=== PATIENT | male | born 1940 | race Caucasian/White ===

== ENCOUNTER 2016-12-12 12:27 | Emergency (ER) | payer OTHER ==
[2016-12-12 12:36] VITALS: TEMP 98.1; BMI 34.1
--- NOTE | 2016-12-12 14:03 | PDOC ---
Attending Attestation - Resident Resident Name: Odin Leyva - ED Attending Attestation I have performed the following: I have examined & evaluated the patient, The case was reviewed & discussed with the resident, I agree w/resident's findings & plan, Exceptions are as noted - HPI HPI: 76 yo M history MARAH, prostate CA, HTN, HL p/w intermittent SOB for past 4 months. He states that he is supposed to use CPAP at night, did not use it last night. Denies cough, fever, chills, cp, cough. No recent illness. No change in exercise tolerance. - Physicial Exam PE: GENERAL: Awake, alert, and fully oriented, in no acute distress HEAD: No signs of trauma EYES: PERRLA, EOMI, sclera anicteric, conjunctiva clear ENT: Auricles normal inspection, hearing grossly normal, nares patent, oropharynx clear without exudates. Moist mucosa NECK: Normal ROM, supple, no lymphadenopathy, JVD, or masses LUNGS: Breath sounds equal, clear to auscultation bilaterally. No wheezes, and no crackles HEART: Regular rate and rhythm, normal S1 and S2, no murmurs, rubs or gallops ABDOMEN: Soft, nontender, normoactive bowel sounds. No guarding, no rebound. No masses EXTREMITIES: Normal range of motion, no edema. No clubbing or cyanosis. No cords, erythema, or tenderness NEUROLOGICAL: Cranial nerves II through XII grossly intact. Normal speech, normal gait SKIN: Warm, Dry, normal turgor, no rashes or lesions noted. - Medical Decision Making 76 yo M with MARAH, prostate CA, HL, HTN presents with SOB this morning, now resolved. Symptoms started after not using his CPAP last night. Will obtain labs including CE and BNP, obtain CXR, and EKG. If all wnl, will likely DC home.
--- NOTE | 2016-12-12 14:16 | PDOC ---
History of Present Illness - General Chief Complaint: Shortness of Breath Stated Complaint: SOB, PCP SENT Time Seen by Provider: 12/12/16 13:12 History Source: Patient, Family Exam Limitations: No Limitations - History of Present Illness Initial Comments: 76 yo M with h/o HTN, HLD, prostate CA, MARAH on CPAP at night presented to the ED with shortness of breath this morning. He stated that he's been feeling tired , lack of energy, under a lot of stress in the last 4 months. He usually doesn' t sleep well due to urinary problem and MARAH. This morning he felt short of breath and called his PMD. He was then sent to the ED by PMD. Denies fever, chills, chest pain, abd pain, dizziness, n/v. Past History - Past Medical History Allergies/Adverse Reactions: Allergies Allergy/AdvReac Type Severity Reaction Status Date / Time No Known Allergies Allergy Verified 05/17/16 16:30 Home Medications: Ambulatory Orders Amlodipine Besylate [Norvasc -] 5 mg PO BID 09/30/14 Atorvastatin Ca [Lipitor] 20 mg PO HS 09/30/14 Cyclosporine [Restasis] 1 each OU BID 09/30/14 Gabapentin 200 mg PO BID 09/30/14 Ranitidine [Zantac -] 150 mg PO DAILY 09/30/14 Brimonidine Tartrate/Timolol [Combigan 0.2%-0.5% Eye Drops] 5 ml OU BID Cetirizine HCl [Zyrtec -] 10 mg PO DAILY 05/17/16 Escitalopram Oxalate [Lexapro -] 5 mg PO DAILY 05/17/16 Ipratropium [place] 15 ml NS BID 05/17/16 Latanoprost 0.005% Eye Drops [Xalatan 0.005% Eye Drops -] 1 drop OU BID Lorazepam 0.5 mg PO DAILY PRN 05/17/16 Triamcinolone Acetonide [Nasacort] 10.8 ml NS BID 05/17/16 Bacitracin Ophthalmic Oint - 1 applic OD TID #0 tube 05/23/16 Aspirin [ASA -] 81 mg PO DAILY 12/12/16 Meloxicam 7.5 mg PO DAILY 12/12/16 Ranitidine [Zantac -] 150 mg PO HS 12/12/16 Triamcinolone Acetonide [Nasacort] 10.8 ml NS BID 12/12/16 Anemia: No Asthma: No Cancer: Yes (H/O PROSTATE WITH RADIATION) Cardiac Disorders: No CVA: No COPD: No CHF: No Dementia: No Diabetes: No GI Disorders: Yes (ACID REFLUX, COLON POLYPS, DIVERTICULOSIS) Disorders: Yes (DESTRUCTED BLADDER TISSUE FROM RADIATION-MILD URINARY LEAKAGE.) HTN: Yes Hypercholesterolemia: Yes Liver Disease: No Seizures: No Thyroid Disease: No - Surgical History Abdominal Surgery: No Appendectomy: No Cardiac Surgery: No Cholecystectomy: Yes Lung Surgery: No Neurologic Surgery: No Orthopedic Surgery: Yes (DORA KNEE REPLACEMENTS 2005, 08/2014 RIGHT KNEE REVISION.) - Psycho/Social/Smoking Cessation Hx Anxiety: No Suicidal Ideation: No Smoking Status: No Smoking History: Former smoker Have you smoked in the past 12 months: No Number of Cigarettes Smoked Daily: 0 If you are a former smoker, when did you quit?: 1994 Information on smoking cessation initiated: No Hx Alcohol Use: Yes (FEW GLASSES PER WEEK) Drug/Substance Use Hx: No Substance Use Type: Alcohol Hx Substance Use Treatment: No Review of Systems - Review of Systems Able to Perform ROS?: Yes Is the patient limited Yemeni proficient: No Constitutional: Yes: Malaise, Weakness. No: Chills, Fever Respiratory: Yes: SOB with Exertion. No: Cough, Shortness of Breath, SOB at Rest Cardiac (ROS): No: Chest Pain ABD/GI: No: Nausea, Vomiting : Yes: Frequency *Physical Exam - Vital Signs Last Vital Signs Temp Pulse Resp BP Pulse Ox 98.1 F 73 18 135/81 96 12/12/16 12:32 12/12/16 12:32 12/12/16 12:32 12/12/16 12:32 12/12/16 12:32 - Physical Exam General Appearance: No: Apparent Distress Neck: positive: Trachea midline, Supple Respiratory/Chest: positive: Lungs Clear, Normal Breath Sounds Cardiovascular: positive: Regular Rhythm, Regular Rate, S1, S2. negative: Murmur Gastrointestinal/Abdominal: positive: Normal Bowel Sounds. negative: Distended , Tenderness Extremity: positive: Swelling Integumentary: positive: Rash (face) Neurologic: positive: Fully Oriented, Alert ED Treatment Course - LABORATORY CBC & Chemistry Diagram: 12/12/16 14:34 12/12/16 14:34 *DC/Admit/Observation/Transfer Diagnosis at time of Disposition: Sleep apnea with use of continuous positive airway pressure (CPAP) Fatigue Qualifiers: Fatigue type: chronic, unspecified Qualified Code(s): R53.82 - Chronic fatigue , unspecified - Discharge Dispostion Disposition: HOME Condition at time of disposition: Stable Admit: No - Referrals Referrals: Jakub Jose MD [Primary Care Provider] - Kirby Mckenzie MD [Staff Physician] - Natan Corley MD [Staff Physician] - - Patient Instructions Additional Instructions: You were seen in the ER due to chronic fatigue and shortness of breath. This could be related to your underlying sleep apnea and poor sleep hygiene. Please follow up with Dr. Yadav and your primary doctor for sleep study and blood sugar management. If you experience acute exertional shortness of breath, please come back in the ER for further evaluation.
[2016-12-12 14:50] LABS: BASOPHIL 0.8 % (0-2.0); EOSINOPHIL 4.8 % (0-4.5); MCH 30.7 pg (25.7-33.7); MEAN CELL VOLUME 93.2 fl (80-96); MEAN PLT VOLUME 7.9 fl (7.5-11.1); NEUTROPHILS 57.9 % (42.8-82.8); PLATELET COUNT 194 K/MM3 (134-434); RDW 13.9 % (11.9-15.9); WHITE BLOOD COUNT 4.5 K/mm3 (4.0-10.0)
[2016-12-12 15:16] LABS: ANION GAP 14 (8-16); BILIRUBIN,TOTAL 0.4 mg/dL (0.2-1.0); CALCIUM 9.2 mg/dL (8.5-10.1); CO2 29 mmol/L (21-32); COCKROFT - GAULT 96.13; CREATININE 0.9 mg/dL (0.7-1.3); GLUCOSE,RANDOM 90 mg/dL (74-106); SGOT/AST 26 U/L (15-37); SGPT/ALT 44 U/L (12-78); TOT PROT 7.2 g/dl (6.4-8.2)
[2016-12-12 15:18] LABS: ALK PHOS 92 U/L (45-117); TROPONIN I < 0.02 ng/ml (0.00-0.05)
[2016-12-12 16:10] VITALS: BP 161/94; PULSE 72
--- NOTE | 2016-12-13 08:15 | EKG ---
Test Reason : Blood Pressure : / mmHG Vent. Rate : 066 BPM Atrial Rate : 066 BPM P-R Int : 186 ms QRS Dur : 088 ms QT Int : 436 ms P-R-T Axes : 047 -07 021 degrees QTc Int : 457 ms NORMAL SINUS RHYTHM MINIMAL VOLTAGE CRITERIA FOR LVH, MAY BE NORMAL VARIANT BORDERLINE ECG WHEN COMPARED WITH ECG OF 15-AUG-2015 08:54, NO SIGNIFICANT CHANGE WAS FOUND Confirmed by TANIKA LOPEZ MD ([id number]) on 12/13/2016 8:15:13 AM Referred By: Confirmed By:TANIKA LOPEZ MD
== END 2016-12-12 16:10 | disposition home or self-care (01) ==
LOC: JER 12:27
DX: G47.33 Obstructive sleep apnea (adult) (pediatric) (principal); F51.8 Other sleep disorders not due to a substance or known physiological condition; I10 Essential (primary) hypertension; E78.00 Pure hypercholesterolemia, unspecified; Z85.46 Personal history of malignant neoplasm of prostate
CPT/HCPCS: 36415; 71010-TC; 80053; 82550; 83036; 83880; 84484; 85025; 93005; 93010; 99283-25

== ENCOUNTER 2017-12-02 14:37 | Emergency (ER) | payer OTHER ==
[2017-12-02 14:53] VITALS: TEMP 97.8; BMI 34.1
[2017-12-02] MEDS ORDERED: LIDOCAINE 1%/EPI 1:100000 (20 ML MULTI DOSE VIAL) ONE (15:09)
--- NOTE | 2017-12-02 15:55 | PDOC ---
History of Present Illness - General History Source: Patient, Spouse Exam Limitations: No Limitations - History of Present Illness Initial Comments: 12/02/17 15:55 The patient is a 77 year old male, with a significant past medical history of HTN, HLD and prostate CA, who presents to the emergency department s/p mechanical fall with, a laceration to the nose. As per patient, he was walking down the concrete steps outside his house when he tripped and fell on his face. He reports hitting his face on the sharp edge of the steps. The patient reports trying to put gauze pads to control the bleeding which he bled through. He denies any recent fevers, chills, headache or dizziness. He denies any recent nausea, vomit, diarrhea or constipation. He denies any recent chest pain or shortness of breath. He denies any recent dysuria, frequency, urgency or hematuria. Allergies: NKA Past surgical history: Radical prostatectomy, cholecystectomy, knee surgeries ( x3) Social History: Social drinking. Nonsmoker. Denies recreational drug use. Primary Care Physician: Dr. Jakub Jose Telephone Clerks Supervisor: Dr. Scooter Bradshaw <Aki Ewing - Last Filed: 12/02/17 15:55> <Kitty Fabian - Last Filed: 12/02/17 16:10> <Kamila Quarles - Last Filed: 12/02/17 19:00> - General Chief Complaint: Injury Stated Complaint: FALL/INJURY Time Seen by Provider: 12/02/17 15:08 Past History <Aki Ewing - Last Filed: 12/02/17 15:55> - Past Medical History Anemia: No Asthma: No Cancer: Yes (H/O PROSTATE WITH RADIATION) Cardiac Disorders: No CVA: No COPD: No CHF: No Dementia: No Diabetes: No GI Disorders: Yes (ACID REFLUX, COLON POLYPS, DIVERTICULOSIS) Disorders: Yes (DESTRUCTED BLADDER TISSUE FROM RADIATION-MILD URINARY LEAKAGE.) HTN: Yes Hypercholesterolemia: Yes Liver Disease: No Seizures: No Thyroid Disease: No - Surgical History Abdominal Surgery: No Appendectomy: No Cardiac Surgery: No Cholecystectomy: Yes Lung Surgery: No Neurologic Surgery: No Orthopedic Surgery: Yes (DORA KNEE REPLACEMENTS 2005, 08/2014 RIGHT KNEE REVISION.) - Suicide/Smoking/Psychosocial Hx Smoking Status: No Smoking History: Never smoked Have you smoked in the past 12 months: No Number of Cigarettes Smoked Daily: 0 If you are a former smoker, when did you quit?: 1994 Information on smoking cessation initiated: No Hx Alcohol Use: Yes (FEW GLASSES PER WEEK) Drug/Substance Use Hx: No Substance Use Type: Alcohol Hx Substance Use Treatment: No <Kitty Fabian - Last Filed: 12/02/17 16:10> <Kamila Quarles - Last Filed: 12/02/17 19:00> - Past Medical History Allergies/Adverse Reactions: Allergies Allergy/AdvReac Type Severity Reaction Status Date / Time No Known Allergies Allergy Verified 05/17/16 16:30 Home Medications: Ambulatory Orders Amlodipine Besylate [Norvasc -] 5 mg PO BID 09/30/14 Atorvastatin Ca [Lipitor] 20 mg PO HS 09/30/14 Gabapentin 200 mg PO BID 09/30/14 Brimonidine Tartrate/Timolol [Combigan 0.2%-0.5% Eye Drops] 5 ml OU BID Escitalopram Oxalate [Lexapro -] 5 mg PO DAILY 05/17/16 Ipratropium [place] 15 ml NS BID 05/17/16 Latanoprost 0.005% Eye Drops [Xalatan 0.005% Eye Drops -] 1 drop OU BID Lorazepam 0.5 mg PO DAILY PRN 05/17/16 Aspirin [ASA -] 81 mg PO DAILY 12/12/16 Omeprazole 20 mg PO DAILY 12/02/17 Solifenacin Succinate [Vesicare -] 5 mg PO DAILY 12/02/17 Triamcinolone Acetonide [Nasacort] 10.8 ml NS DAILY 12/02/17 Zolpidem Tartrate [Ambien] 5 mg PO HS 12/02/17 Review of Systems - Review of Systems Able to Perform ROS?: Yes Comments:: 12/02/17 15:55 GENERAL/CONSTITUTIONAL: No fever or chills. No weakness. (+)HEAD, EYES, EARS, NOSE AND THROAT: Laceration to the nose with active bleeding. No change in vision. No ear pain or discharge. No sore throat. CARDIOVASCULAR: No chest pain or shortness of breath. RESPIRATORY: No cough, wheezing, or hemoptysis. GASTROINTESTINAL: No nausea, vomiting, diarrhea or constipation. GENITOURINARY: No dysuria, frequency, or change in urination. MUSCULOSKELETAL: No joint or muscle swelling or pain. No neck or back pain. SKIN: No rash NEUROLOGIC: No headache, vertigo, loss of consciousness, or change in strength/ sensation. ENDOCRINE: No increased thirst. No abnormal weight change. HEMATOLOGIC/LYMPHATIC: No anemia, easy bleeding, or history of blood clots. ALLERGIC/IMMUNOLOGIC: No hives or skin allergy. All Other Systems: Reviewed and Negative <Aki Ewing - Last Filed: 12/02/17 15:55> *Physical Exam - Vital Signs Last Vital Signs Temp Pulse Resp BP Pulse Ox 97.8 F 77 18 181/112 96 12/02/17 14:51 12/02/17 14:51 12/02/17 14:51 12/02/17 14:51 12/02/17 14:51 <Aki Ewing - Last Filed: 12/02/17 15:55> - Vital Signs Last Vital Signs Temp Pulse Resp BP Pulse Ox 97.8 F 77 18 181/112 96 12/02/17 14:51 12/02/17 14:51 12/02/17 14:51 12/02/17 14:51 12/02/17 14:51 <Kitty Fabian - Last Filed: 12/02/17 16:10> - Vital Signs Last Vital Signs Temp Pulse Resp BP Pulse Ox 97.8 F 77 18 181/112 96 12/02/17 14:51 12/02/17 14:51 12/02/17 14:51 12/02/17 14:51 12/02/17 14:51 <Kamila Quarles - Last Filed: 12/02/17 19:00> Procedures - Laceration/Wound Repair Left Lateral Frontal Wound Length: to 2.5 cm Wound Explored: clean, no foreign body present Wound's Depth, Shape: irregular, contused tissue Anesthesia: 1% Lidocaine w/ Epi Amount of Anesthetic (ccs): 3 Wound Debrided: minimal Wound Repaired With: Sutures Suture Size/Type: 5:0, nylon Number of Sutures: 5 (2 vertical mattress, 3 simple interrupted) Sterile Dressing Applied: Yes <Kitty Fabian - Last Filed: 12/02/17 16:10> ED Treatment Course - RADIOLOGY Radiology Studies Ordered: Category Date Time Status FACIAL BONES CT W/O CONTRAST [CT] Stat CT Scan 12/02/17 16:[address] WITHOUT CONTRAST [CT] Stat CT Scan 12/02/17 16:11 Taken - Medications Given in the ED: ED Medications Discontinued Medications Generic Name Dose Route Start Last Admin Trade Name Sabina PRN Reason Stop Dose Admin Acetaminophen 1,000 mg 12/02/17 18:01 12/02/17 18:42 Tylenol - PO 12/02/17 18:02 1,000 mg ONCE ONE Administration Diphtheria/Tetanus/Acell Pertussis 0.5 ml 12/02/17 16:16 12/02/17 16:21 Boostrix - IM 12/02/17 16:17 0.5 ml .ONCE ONE Administration <Kamila Quarles - Last Filed: 12/02/17 19:00> Medical Decision Making - Medical Decision Making 12/02/17 16:11 +Mod oozing of blood from forehead wound prior to suture placement. Wound was sutured, + hemostasis. Pt also with abrasion to nasal bridge and L cheek, both with small tissue avulsion and oozing of blood. Surgicel and sterile gauze dressing placed. <Kitty Fabian - Last Filed: 12/02/17 16:10> *DC/Admit/Observation/Transfer - Attestations Scribe Attestion: 12/02/17 15:56 Documentation prepared by Aki Ewing, acting as director of medical review for Kitty Fabian MD. <Aki Ewing - Last Filed: 12/02/17 15:55> <Kitty Fabian - Last Filed: 12/02/17 16:10> - Discharge Dispostion Admit: No <Kamila Quarles - Last Filed: 12/02/17 19:00> Diagnosis at time of Disposition: Fall - Discharge Dispostion Disposition: HOME Condition at time of disposition: Good - Patient Instructions Printed Discharge Instructions: How to Prevent Falls Additional Instructions: Return to the Emergency Department in 7 days for suture removal A referral has been provided to ENT for your nasal fracture. Please follow up in the next 3-5 days. Return to the Emergency Department for any new/worsening/concerning symptoms.
[2017-12-02] MEDS ORDERED: DIPHTH,PERTUSS(ACELL),TET 0.5 ML DISP.SYRIN IM ONE (16:16)
[2017-12-02] MEDS ORDERED: ACETAMINOPHEN 500 MG TABLET (FP) PO ONE (18:01)
[2017-12-02] MEDS ORDERED: ACETAMINOPHEN 325 MG TABLET (FP) ONE (18:33)
[2017-12-02 19:12] VITALS: BP 146/99; PULSE 73
== END 2017-12-02 19:13 | disposition home or self-care (01) ==
LOC: JER 14:37
PROC: 09QK3ZZ Repair Nasal Mucosa and Soft Tissue, Percutaneous Approach (ICD-10-PCS; principal; 2017-12-02)
PROC: 3E0234Z Introduction of Serum, Toxoid and Vaccine into Muscle, Percutaneous Approach (ICD-10-PCS; 2017-12-02)
DX: S01.21XA Laceration without foreign body of nose, initial encounter (principal); W10.8XXA Fall (on) (from) other stairs and steps, initial encounter; Y93.89 Activity, other specified; Y92.018 Other place in single-family (private) house as the place of occurrence of the external cause; Y99.8 Other external cause status; I10 Essential (primary) hypertension; E78.00 Pure hypercholesterolemia, unspecified; Z85.46 Personal history of malignant neoplasm of prostate; Z96.653 Presence of artificial knee joint, bilateral; Z87.19 Personal history of other diseases of the digestive system; Z79.82 Long term (current) use of aspirin; Z90.79 Acquired absence of other genital organ(s)
CPT/HCPCS: 12011; 70450-TC; 70486-TC; 90471; 90715; 99282-25

== ENCOUNTER 2019-05-03 11:22 | Emergency (ER) | payer OTHER ==
[2019-05-03 11:40] VITALS: BP 164/94; PULSE 69; TEMP 98.5; BMI 34.8
--- NOTE | 2019-05-03 12:28 | PDOC ---
Attending Attestation - Resident Resident Name: Alfie Minor - ED Attending Attestation I have performed the following: I have examined & evaluated the patient, The case was reviewed & discussed with the resident, I agree w/resident's findings & plan, Exceptions are as noted - HPI HPI: 05/03/19 12:16 78y M hx prostate ca, b/l knee replacements, presenst with atraumatic L leg pain x 2.5 weeks. pt notse pain is worse in the ankle and lateral aspect of calf. Pt had an xray as an outpatient with a possible fracture and was referred to PT, has an appt with ortho but hasnt seen them yet. pt denies any trauma, falls, numbness/tingling/weakness. no pain elswhere. he has been actively participating in PT, ahs beenaw lking/excercising and pain seems to be gettin ga bit worse. deneis any other symptmos including physical exam: general: well apeparing in no distress abd soft nontender ext: trace edema b/l, no calf tenderness, no focal bony ttp on LLE, normal passive ROM of knee, ankle without pain. mild pain on lateral knee/tib/fib on active ROM. PMD: Dr. Jose will obtain xray to r/o fx if neg, will treat supportively michelle reassess - Physicial Exam PE: 05/04/19 12:57 see above - Medical Decision Making 05/03/19 14:01 xray noted for medial tibial fractuer will put pt in a knee immobilizer and have him fu w/ ortho
--- NOTE | 2019-05-03 12:42 | PDOC ---
History of Present Illness - General Chief Complaint: Pain Stated Complaint: LEFT KNEE PAIN Time Seen by Provider: 05/03/19 11:36 History Source: Patient, Spouse Exam Limitations: No Limitations - History of Present Illness Initial Comments: 05/03/19 12:11 PMD: Rebeca HPI: 78yo man PSH bilateral knee replacements with R-sided revision presenting with "broken left knee" diagnosed via xray yesterday. 2.5week history of worsening LLE pain near knee, [place], and ankle. Reports pain with ambulation that is now "80% worse" than it was last week. Leads and active lifestyle, unsure what caused his pain initially but thinks it may have occurred while he was working in the garden. Since the pain started he has continued his daily exercise and has gone to PT twice. He does leg extensions, walks the dog, and works in the yard. Naproxen has provided some relief (last taken 9AM) however, Excedrin taken last night was more effective. Ice packs and elevation have helped. Received call from PMD yesterday saying he had a fracture on xray on . Told to present to the ED if pain worsened. KNDA Hx of prostate cancer, not active. Past History - Travel Traveled outside of the country in the last 30 days: No Close contact w/someone who was outside of country & ill: No - Past Medical History Allergies/Adverse Reactions: Allergies Allergy/AdvReac Type Severity Reaction Status Date / Time No Known Allergies Allergy Verified 05/03/19 11:27 Home Medications: Ambulatory Orders Amlodipine Besylate [Norvasc -] 5 mg PO BID 09/30/14 Atorvastatin Ca [Lipitor] 20 mg PO HS 09/30/14 Gabapentin 100 mg PO BID 09/30/14 Brimonidine Tartrate/Timolol [Combigan 0.2%-0.5% Eye Drops] 5 ml OU BID Escitalopram Oxalate [Lexapro -] 10 mg PO DAILY 05/17/16 Ipratropium [place] 15 ml NS BID 05/17/16 Latanoprost 0.005% Eye Drops [Xalatan 0.005% Eye Drops -] 1 drop OU BID Lorazepam 0.5 mg PO DAILY PRN 05/17/16 Aspirin [ASA -] 81 mg PO DAILY 12/12/16 Omeprazole 20 mg PO DAILY 12/02/17 Solifenacin Succinate [Vesicare -] 5 mg PO DAILY 12/02/17 Triamcinolone Acetonide [Nasacort] 10.8 ml NS DAILY 12/02/17 Zolpidem Tartrate [Ambien] 5 mg PO HS 12/02/17 Lifitegrast [Xiidra] 1 drop OU BID 05/03/19 Naproxen 500 mg PO BID 05/03/19 Anemia: No Asthma: No Cancer: Yes (H/O PROSTATE WITH RADIATION) Cardiac Disorders: No CVA: No COPD: No CHF: No Dementia: No Diabetes: No GI Disorders: Yes (ACID REFLUX, COLON POLYPS, DIVERTICULOSIS) Disorders: Yes (DESTRUCTED BLADDER TISSUE FROM RADIATION-MILD URINARY LEAKAGE.) HTN: Yes Hypercholesterolemia: Yes Liver Disease: No Seizures: No Thyroid Disease: No - Surgical History Abdominal Surgery: No Appendectomy: No Cardiac Surgery: No Cholecystectomy: Yes Lung Surgery: No Neurologic Surgery: No Orthopedic Surgery: Yes (DORA KNEE REPLACEMENTS 2005, 08/2014 RIGHT KNEE REVISION.) - Suicide/Smoking/Psychosocial Hx Smoking Status: No Smoking History: Never smoked Have you smoked in the past 12 months: No Number of Cigarettes Smoked Daily: 0 If you are a former smoker, when did you quit?: 1994 Information on smoking cessation initiated: No Hx Alcohol Use: No Drug/Substance Use Hx: No Substance Use Type: Alcohol Hx Substance Use Treatment: No Review of Systems - Review of Systems Able to Perform ROS?: Yes Is the patient limited Kinyarwanda proficient: Yes Constitutional: No: Chills, Diaphoresis, Fever, Weakness HEENTM: No: Eye Pain, Nose Pain, Throat Pain, Mouth Swelling Respiratory: No: Cough, Shortness of Breath, Wheezing Cardiac (ROS): No: Chest Pain, Irregular Heart Rate, Palpitations, Chest Tightness ABD/GI: No: Constipated, Diarrhea, Nausea, Rectal Bleeding, Vomiting, Tarry Stools : No: Burning, Dysuria, Discharge, Hematuria Musculoskeletal: Yes: Symptoms Reported, See HPI, Joint Pain, Muscle Pain. No: Back Pain, Muscle Weakness Integumentary: No: Bruising, Erythema, Flushing, Lesions Neurological: No: Headache, Numbness, Tingling, Weakness Psychiatric: No: Emotional Problems, Mood Swings Endocrine: No: Unexplained Weight Loss, Change in Weight Hematologic/Lymphatic: No: Anemia, Blood Clots, Easy Bleeding All Other Systems: Reviewed and Negative *Physical Exam - Vital Signs Last Vital Signs Temp Pulse Resp BP Pulse Ox 98.5 F 69 18 164/94 96 05/03/19 11:22 05/03/19 11:22 05/03/19 11:22 05/03/19 11:22 05/03/19 11:22 - Physical Exam Comments: 05/03/19 12:48 Vitals reviewed, AFVSS Gen: WDWN man, resting in bed, tape on left left near knee and ankle, no acute distress CV: RRR, nl s1/s2, no murmurs appreciated Pulm: CTABL, normal WOB, no wheezes / rales / rhonchi Abd: Obese, soft, nontedner, nondistended Skin: Warm, dry, no rashes, ecchymosis Ext: WWP, no clubbing / cyanosis / edema, LLE with tape by knee, normal ROM with pain at extreme flexion, negative Homans sign, nontender posterior knee Pulses: 2+ radial and DP Neuro: Normal sensation bilateral extremities, strength adequate, 4+ at a minimum, didn't attempt to over power 2/2 reported fracture on recent xray Medical Decision Making - Medical Decision Making 05/03/19 12:55 78yo man PSH bilateral knee replacements with R-sided revision presenting with "broken left knee" diagnosed via xray yesterday. Clinically not apparent where fracture would be. No clinical signs of DVT other than pain, LLE DVT study performed . No apparent infectious signs or symptoms. No signs of compartment syndrome - negative for all Ps. Plan for re-imaging and appropriate splinting as necessary to ensure stability before Orthopaedic surgery appointment (currently scheduled for Dr. Nguyen for ). Likely discharge. Of note, mechanism unclear if fractured - ?pathologic fracture source should be addressed on outpatient basis. -Xray L knee, Tib/Fib, Ankle -650 Tylenol PO for pain, will reassess 05/03/19 14:06 -Xray with proximal tibial fracture, medial prominence adjacent to hardware -Patient with ortho appointment for , will attempt to move up -Sent with Xray report and CD copy of films -Patient placed in knee immobilizer, pain well controlled at the current time -Plan to continue Naproxen and OTC pain relievers as needed -Instructed in elevation and 20 on - 20 off icing Dispo: Home *DC/Admit/Observation/Transfer Diagnosis at time of Disposition: Leg pain, left - Discharge Dispostion Disposition: HOME Condition at time of disposition: Stable Decision to Admit order: No - Referrals Referrals: Jakub Jose MD [Primary Care Provider] - - Patient Instructions Printed Discharge Instructions: DI for Shinbone Fracture, How to Use a Knee Immobilizer Additional Instructions: You were seen and evaluated in the [facility] Emergency Department. Thank you for coming in. You were evaluated for your knee pain / fracture. You were found to have a proximal tibial fracture and were placed in a knee immobilizer. Continue to take OTC pain medications per label instructions as needed for pain. Follow up with your orthopaedic surgeon at your scheduled appointment on or earlier if possible. Remember your xray CD and reports to take with you. Please return to the ED if you experience any new or concerning symptoms which include but are not limited to: severe pain resistant to medication, swelling, coldness of your leg, persistent numbness or tingling in the extremity as these may be signs of a dangerous complication. - Post Discharge Activity
[2019-05-03] MEDS ORDERED: ACETAMINOPHEN 325 MG TABLET (FP) PO ONE (12:45)
[2019-05-03] MEDS ORDERED: ACETAMINOPHEN 325 MG TABLET (FP) ONE (12:52)
== END 2019-05-03 14:25 | disposition home or self-care (01) ==
LOC: FER 11:22
DX: M79.605 Pain in left leg (principal); Z96.653 Presence of artificial knee joint, bilateral; Z85.46 Personal history of malignant neoplasm of prostate; Z92.3 Personal history of irradiation; K21.9 Gastro-esophageal reflux disease without esophagitis; I10 Essential (primary) hypertension; E78.00 Pure hypercholesterolemia, unspecified
CPT/HCPCS: 73562-TC-LT-FY; 73590-TC-LT-FY; 73610-TC-LT-FY; 99284-25

== ENCOUNTER 2019-09-05 09:38 | Emergency (ER) | payer OTHER ==
[2019-09-05 09:51] VITALS: PULSE 92; BMI 34.1
--- NOTE | 2019-09-05 10:09 | PDOC ---
History of Present Illness - History of Present Illness Initial Comments: 09/05/19 11:00 Pt is an 79y/o male with prostate cancer s/p prostatectomy, right knee replacement 05/2019, HTN, HLD, and glaucoma who presents with constipation. This has been present since knee surgery but has gotten worse over the last 3 weeks. He has taken Miralax, colace, metamusil, dulcolax, Linzess, and Fleet enemas with no relief. He has daily or every other day small bowel movements but still feels urge to defecate. He has external hemorrhoids and is concerned they will bleed if he strains. Last colonoscopy was 5 years ago and had diverticulosis and polyps. He reports fatigue, loss of appetite, mild abdominal fullness, and fever 100.4 yesterday. Of note, he also has chronic rico that was replaced 7 days ago and reported a traumatic placement which the urethra was damaged and had to be cauterized then. The rico was replaced and is no longer draining blood. He was placed on cefuroxime and started 4 days ago for a UTI. Pt reports left shoulder pain and limited ROM. He has received an x-ray previously and EKG that was normal last week. He has started physical therapy with small relief. <Makayla Scherer - Last Filed: 09/05/19 14:11> <Lynne Mercer - Last Filed: 09/05/19 15:20> - General Chief Complaint: Constipation Stated Complaint: Constipation Past History - Past Medical History Anemia: No Asthma: No Cancer: Yes (H/O PROSTATE WITH RADIATION) Cardiac Disorders: No CVA: No COPD: No CHF: No Dementia: No Diabetes: No GI Disorders: Yes (ACID REFLUX, COLON POLYPS, DIVERTICULOSIS) Disorders: Yes (DESTRUCTED BLADDER TISSUE FROM RADIATION-MILD URINARY LEAKAGE.) HTN: Yes Hypercholesterolemia: Yes Liver Disease: No Seizures: No Thyroid Disease: No - Surgical History Abdominal Surgery: No Appendectomy: No Cardiac Surgery: No Cholecystectomy: Yes Lung Surgery: No Neurologic Surgery: No Orthopedic Surgery: Yes (DORA KNEE REPLACEMENTS 2005, 08/2014 RIGHT KNEE REVISION.) - Immunization History Immunization Up to Date: Yes - Psycho Social/Smoking Cessation Hx Smoking Status: No Smoking History: Never smoked Have you smoked in the past 12 months: No Number of Cigarettes Smoked Daily: 0 If you are a former smoker, when did you quit?: 1994 Hx Alcohol Use: No Drug/Substance Use Hx: No Substance Use Type: Alcohol Hx Substance Use Treatment: No <UmaMakayla resendiz - Last Filed: 09/05/19 14:11> <Lynne Mercer - Last Filed: 09/05/19 15:20> - Past Medical History Allergies/Adverse Reactions: Allergies Allergy/AdvReac Type Severity Reaction Status Date / Time ciprofloxacin [From Cipro] Allergy Verified 09/05/19 09:47 Home Medications: Ambulatory Orders Amlodipine Besylate [Norvasc -] 5 mg PO BID 09/30/14 Atorvastatin Ca [Lipitor] 20 mg PO HS 09/30/14 Gabapentin 100 mg PO BID 09/30/14 Brimonidine Tartrate/Timolol [Combigan 0.2%-0.5% Eye Drops] 5 ml OU BID Escitalopram Oxalate [Lexapro -] 10 mg PO DAILY 05/17/16 Ipratropium [place] 15 ml NS BID 05/17/16 LORazepam [Lorazepam] 0.5 mg PO DAILY PRN 05/17/16 Latanoprost 0.005% Eye Drops [Xalatan 0.005% Eye Drops -] 1 drop OU BID Aspirin [ASA -] 81 mg PO DAILY 12/12/16 Omeprazole 20 mg PO DAILY 12/02/17 Solifenacin Succinate [Vesicare -] 5 mg PO DAILY 12/02/17 Triamcinolone Acetonide [Nasacort] 10.8 ml NS DAILY 12/02/17 Zolpidem Tartrate [Ambien] 5 mg PO HS 12/02/17 Lifitegrast [Xiidra] 1 drop OU BID 05/03/19 Naproxen 500 mg PO BID 05/03/19 Peg 3350/Na Sulf,Bicarb,Cl/KCl [Golytely Solution -] 4,000 ml PO ONCE #1 soln.recon 09/05/19 Sennosides/Docusate Sodium [Senokot-S Tablet] 2 each PO DAILY PRN #60 tablet Review of Systems - Review of Systems Constitutional: Yes: Fever, Malaise. No: Chills ABD/GI: Yes: Abdominal Distended. No: Diarrhea, Nausea, Vomiting : No: Burning, Hematuria <Makayla Scherer - Last Filed: 09/05/19 14:11> *Physical Exam - Vital Signs Last Vital Signs Temp Pulse Resp BP Pulse Ox 98.9 F 92 H 18 115/69 96 09/05/19 09:47 09/05/19 09:47 09/05/19 09:47 09/05/19 09:47 09/05/19 09:47 - Physical Exam General Appearance: Yes: Nourished, Appropriately Dressed. No: Apparent Distress HEENT: positive: EOMI, [place] Neck: positive: Trachea midline Respiratory/Chest: positive: Lungs Clear Cardiovascular: positive: Regular Rhythm, Regular Rate. negative: Murmur Gastrointestinal/Abdominal: positive: Normal Bowel Sounds, Tender (mild lower abdominal on deep palpation), Protuberent Male Genitalia: positive: other (rico catheter draining yellowish urine) Rectal Exam: positive: other (no masses noted, no stool felt in vault or seen on glove) Extremity: positive: Other (left shoulder decreased flexion and abduction) Neurologic: positive: automobile washer steam II-XII NML intact, Fully Oriented, Alert, Normal Mood/ Affect <Dale Scherera - Last Filed: 09/05/19 14:11> - Vital Signs Last Vital Signs Temp Pulse Resp BP Pulse Ox 98.6 F 92 H 15 123/78 96 09/05/19 10:08 09/05/19 10:08 09/05/19 10:08 09/05/19 10:08 09/05/19 10:08 <Lynne Mercer - Last Filed: 09/05/19 15:20> ED Treatment Course - LABORATORY CBC & Chemistry Diagram: 09/05/19 10:11 09/05/19 10:11 <Makayla Scherer - Last Filed: 09/05/19 14:11> - LABORATORY CBC & Chemistry Diagram: 09/05/19 10:11 09/05/19 10:11 - ADDITIONAL ORDERS Additional order review: Laboratory Results 09/05/19 09/05/19 09/05/19 11:37 10:11 10:11 Sodium 134 L Potassium 4.5 Chloride 99 Carbon Dioxide 28 Anion Gap 6 L BUN 22.1 H Creatinine 0.8 Est GFR (CKD-EPI)AfAm 97.78 Est GFR (CKD-EPI)NonAf 84.37 Random Glucose 131 H Lactic Acid 0.8 Calcium 8.7 Total Bilirubin 0.3 AST 43 H ALT 53 Alkaline Phosphatase 110 Total Protein 6.2 L Albumin 2.4 L Lipase 231 09/05/19 10:11 RBC 3.47 L MCV 88.3 MCHC 33.8 RDW 15.7 D MPV 7.3 L Neutrophils % 77.9 D Lymphocytes % 8.5 D Monocytes % 11.3 H Eosinophils % 1.3 Basophils % 1.0 <SylvieLynneindia Luque - Last Filed: 09/05/19 15:20> Medical Decision Making - Medical Decision Making 09/05/19 11:17 Pt is an 79y/o male with prostate cancer s/p prostatectomy and radiation, right knee replacement 05/2019, HTN, HLD, and glaucoma who presents with worsening constipation x3 weeks with no relief with prescription medications and enemas. Rectal exam did not indicate stool in rectal vault. CBC and CMP WNL. order: CT abdomen/pelvis with contrast differential: constipation, ileus 09/05/19 14:08 CT shows constipation. Will give prescription and discharge pt to f/u out pt. <Makayla Scherer - Last Filed: 09/05/19 14:11> Discharge - Discharge Information Problems reviewed: Yes <Makayla Scherer - Last Filed: 09/05/19 14:11> - Admission No <Lynne Mercer - Last Filed: 09/05/19 15:20> - Discharge Information Clinical Impression/Diagnosis: Constipation Qualifiers: Constipation type: unspecified constipation type Qualified Code(s): K59.00 - Constipation, unspecified Condition: Stable Disposition: HOME - Additional Discharge Information Prescriptions: Peg 3350/Na Sulf,Bicarb,Cl/KCl [Golytely Solution -] 4,000 ml PO ONCE #1 soln.recon Sennosides/Docusate Sodium [Senokot-S Tablet] 2 each PO DAILY PRN #60 tablet PRN Reason: Constipation - Follow up/Referral Referrals: Jakub Jose MD [Primary Care Provider] - Jonatan Holguin DO [Staff Physician] - - Patient Discharge Instructions Patient Printed Discharge Instructions: DI for Constipation Additional Instructions: You presented to the emergency room for constipation. A CAT scan showed no specific cause. You are being given 2 prescriptions to help with bowel movements. You are able to go home. Please follow up with Dr. Jose or Dr. Holguin in the next week. Return to the emergency room or call 911 if you do not improve.
[2019-09-05 10:30] LABS: EOS % 1.3 % (0-4.5); HEMATOCRIT 30.6 % (35.4-49); HEMOGLOBIN 10.4 GM/dL (11.7-16.9); LYMPH % 8.5 % (8-40); MCH 29.8 pg (25.7-33.7); MCHC 33.8 g/dl (32.0-35.9); MEAN CELL VOLUME 88.3 fl (80-96); MEAN PLT VOLUME 7.3 fl (7.5-11.1); MONO % 11.3 % (3.8-10.2); NEUT % 77.9 % (42.8-82.8); PLATELET COUNT 322 K/MM3 (134-434); RBC 3.47 M/mm3 (4.00-5.60); RDW 15.7 % (11.9-15.9); WHITE BLOOD COUNT 6.6 K/mm3 (4.0-10.0)
[2019-09-05 11:07] LABS: ALBUMIN 2.4 g/dl (3.4-5.0); BILIRUBIN,TOTAL 0.3 mg/dL (0.2-1); BLOOD UREA NITROGEN 22.1 mg/dL (7-18); CALCIUM 8.7 mg/dL (8.5-10.1); CREATININE 0.8 mg/dL (0.55-1.3); POTASSIUM 4.5 mmol/L (3.5-5.1); TOT PROT 6.2 g/dl (6.4-8.2)
--- NOTE | 2019-09-05 11:19 | PDOC ---
Attending Attestation - Resident Resident Name: Makayla Scherer - ED Attending Attestation I have performed the following: I have examined & evaluated the patient, The case was reviewed & discussed with the resident, I agree w/resident's findings & plan - HPI HPI: 09/05/19 11:19 79 year old male, with a significant past medical history of HTN, HLD and prostate CA presenting with constipation recent knee replacement several weeks ago. a/w fatigue, loss of appetite, mild abdominal fullness, and fever 100.4 yesterday. pt normally self catheterizes. Of note, he also has chronic rico that was replaced 7 days ago and reported a traumatic placement which the urethra was damaged and had to be cauterized then. The rico was replaced and is no longer draining blood. He was placed on cefuroxime and started 4 days ago for a UTI. He has taken Miralax, colace, metamusil, dulcolax, Linzess, and Fleet enemas with no relief. He has daily or every other day small bowel movements but still feels urge to defecate. He has external hemorrhoids and is concerned they will bleed if he strains. Last colonoscopy was 5 years ago + diverticulosis and polyps. Pt reports left shoulder pain and limited ROM. He has received an x-ray previously and EKG that was normal last week. He has started physical therapy with small relief. Allergies: cipro Past surgical history: Radical prostatectomy, cholecystectomy, knee surgeries ( x3) Social History: Social drinking. Nonsmoker. Denies recreational drug use. Primary Care Physician: Dr. Jakub Jose 09/05/19 11:20 09/05/19 15:21 - Physicial Exam PE: 09/05/19 12:52 Agree with the resident's HPI and PE as documented in the electronic medical record. NAD, well appearing, EOMI, PERRL, nl conjunctiva, anicteric; neck supple. lungs clear, RRR, abdomen soft nontender. no rebound, guarding. Back nontender. RIVERO x4, no focal neuro deficits. No peripheral edema. normal color for ethnicity , WWP. Rectal exam performed by the resident, empty vault, no gross blood or stool - Medical Decision Making 09/05/19 11:21 Vital Signs Temp Pulse Resp BP Pulse Ox 98.6 F 92 H 15 123/78 96 01/17/20 10:08 09/05/19 10:08 09/05/19 10:08 09/05/19 10:08 09/05/19 10:08 Status post cholecystectomy, no obvious obstruction, fecal retention is noted correlated with constipation no other acute abdominal pathology is noted Laboratory results are unremarkable, normal lipase and LFTs, no WBC count. Baseline anemia. abdomen soft and nontender here no fever VS reviewed and wnl, nontoxic and no peritoneal findings. Provided information with his GI Dr. Marie, recommended GoLYTELY/bowel prep , stool softeners will Rx, high-fiber diet supportive measures IV fluids and follow-up with his urologist as well for his urinary retention and traumatic Rico placement from previous. appt next week. no e/o retention or infection here, already on abx told to continue taking, defer further testing. Pt to be discharged in stable condition. Patient and family made aware of clinical impression, treatment recommendations and disposition plan, return precautions discussed (including but not limited to new or persistent/worsening symptoms, pain, fevers, or signs of infection, chest pain, respiratory distress , inability to tolerate oral intake, dehydration, syncope, or neurologic changes ). Follow up with PMD and/or specialist as recommended, follow up information provided, take medications as instructed for duration of time. continue with supportive care, avoid triggers and precipitants. All questions answered to patient's satisfaction and expressed understanding and comfort with this. At the time of discharge, the patient is alert, clinically improved, tolerating po and verbalizes understanding of instructions, satisfied with the care received and felt comfortable with the plan. Patient does not suffer from an acute life- threatening medical condition at this time and is safe for outpatient follow- up. 09/05/19 14:53 09/05/19 14:53 09/05/19 15:21
[2019-09-05 15:59] VITALS: BP 136/76; TEMP 98.3
== END 2019-09-05 15:30 | disposition home or self-care (01) ==
LOC: JER 09:38
DX: K59.00 Constipation, unspecified (principal); Z88.8 Allergy status to other drugs, medicaments and biological substances; Z85.46 Personal history of malignant neoplasm of prostate; I10 Essential (primary) hypertension; E78.5 Hyperlipidemia, unspecified
CPT/HCPCS: 36415; 74177-TC; 80053; 83605; 83690; 85025; 99282-25; Q9967

== ENCOUNTER 2024-12-29 12:49 | Inpatient (IN) | payer OTHER, MEDICARE ==
[2024-12-29] MEDS: SODIUM CHLORIDE 0.9% 500 ML INFUS.BAG IV ONE (15:00)
[2024-12-29 15:38] LABS: ABSOLUTE IMMATURE GRANULOCYTES 0.01 x10^3/uL (0.0-0.031); BASOPHILS # 0.02 x10^3/uL (0.01-0.08); EOSINOPHIL % 1.7 % (0.8-7.0); EOSINOPHILS # 0.08 x10^3/uL (0.04-0.54); HEMATOCRIT 45.2 % (40.1-51.0); HEMOGLOBIN 14.1 g/dL (13.7-17.5); MCHC 31.2 g/dl (32.3-36.5); MEAN PLT VOLUME 9.3 fl (9.4-12.4); MONOCYTE # 0.75 x10^3/uL (0.30-0.82); MONOCYTE % 15.9 % (5.3-12.2); PLATELET COUNT 159 x10^3/uL (163-337)
[2024-12-29 16:04] LABS: ALBUMIN 3.6 g/dl (3.4-5.0); CALCIUM 8.9 mg/dL (8.5-10.1)
[2024-12-29 16:05] LABS: BLOOD UREA NITROGEN 21.1 mg/dL (7-18)
[2024-12-29 16:08] LABS: CREATININE 1.1 mg/dL (0.55-1.3)
[2024-12-29 16:09] LABS: BILIRUBIN,TOTAL 0.5 mg/dL (0.2-1); TOT PROT 6.9 g/dl (6.4-8.2)
[2024-12-29 16:58] LABS: HIV INTERPRETATION NEGATIVE (NEGATIVE)
[2024-12-29 17:14] LABS: URINE AMPHETAMINES NEGATIVE (NEGATIVE); URINE BARBITURATES NEGATIVE (NEGATIVE)
[2024-12-29 17:15] LABS: METHADONE, UR NEGATIVE (NEGATIVE); OPIATES, URI NEGATIVE (NEGATIVE); PHENCYCLIDINE,URINE NEGATIVE (NEGATIVE); URINE BENZODIAZEPINES NEGATIVE (NEGATIVE)
[2024-12-29 17:17] LABS: EPI CELLS 2 /uL (0-25.1); HYALINE CASTS 0 /uL (0-3.1); PH,URINE 5.5 (5.0-8.0); URINE APPEARANCE CLEAR; URINE BACTERIA 4 /uL (0-1359); URINE BILIRUBIN NEGATIVE (NEGATIVE); URINE COLOR YELLOW; URINE GLUCOSE (UA) NEGATIVE (NEGATIVE); URINE KETONE NEGATIVE (NEGATIVE); URINE LEUK ESTERASE NEGATIVE (NEGATIVE); URINE NITRITE NEGATIVE (NEGATIVE); URINE PROTEIN 1+ (NEGATIVE); URINE RBC 4 /uL (0-23.9); URINE UROBILINOGEN 0.2 mg/dL (0.2-1.0); URINE WBC 3 /uL (0-25.8)
[2024-12-29 17:41] LABS: COCAINE, UR NEGATIVE (NEGATIVE)
[2024-12-29] MEDS ORDERED: FUROSEMIDE 40 MG/4 ML INJECTABLE VIAL ONE (18:52)
[2024-12-29] MEDS ORDERED: CEFTRIAXONE 1 G/50 ML PREMIX 50 ML IVPB ONE (18:52)
[2024-12-29] MEDS ORDERED: AZITHROMYCIN IVPB 500 MG/250 ML BAG IVPB ONE (19:01)
[2024-12-29] MEDS: CEFTRIAXONE 1 G/50 ML PREMIX 50 ML IVPB SCH (19:06)
[2024-12-29] MEDS: FUROSEMIDE 40 MG/4 ML INJECTABLE VIAL IVPUSH ONE (19:06)
[2024-12-29] MEDS: AZITHROMYCIN IVPB 500 MG/250 ML BAG IVPB SCH (19:13)
[2024-12-29 21:38] VITALS: BMI 36.5
[2024-12-29] MEDS: DEXAMETHASONE 4 MG TABLET (FP) PO SCH (22:48)
[2024-12-29] MEDS: BRIMONIDINE TARTRATE 0.2% OPHTHALMIC 5 ML BOTTLE OD SCH (23:09)
[2024-12-29] MEDS: TIMOLOL 0.5% OPHTHALMIC SOL 5 ML BOTTLE OD SCH (23:10)
[2024-12-29] MEDS: BUDESONIDE/FORMETEROL FUMARATE 80/4.5 mcg INHALER IH SCH (23:11)
[2024-12-29] MEDS: ATORVASTATIN CA 20 MG TABLET (FP) PO SCH (23:11)
[2024-12-29] MEDS: REMDESIVIR 200 MG in SODIUM CHLORIDE 250 ML IVPB ONE (23:12)
[2024-12-30 08:29] LABS: ABSOLUTE IMMATURE GRANULOCYTES 0.01 x10^3/uL (0.0-0.031); BASOPHILS # 0.01 x10^3/uL (0.01-0.08); EOSINOPHIL % 0.3 % (0.8-7.0); EOSINOPHILS # 0.01 x10^3/uL (0.04-0.54); HEMATOCRIT 43.3 % (40.1-51.0); HEMOGLOBIN 13.5 g/dL (13.7-17.5); MCHC 31.2 g/dl (32.3-36.5); MEAN CELL VOLUME 96.9 fl (79.0-92.2); MEAN PLT VOLUME 9.4 fl (9.4-12.4); MONOCYTE # 0.09 x10^3/uL (0.30-0.82); MONOCYTE % 2.7 % (5.3-12.2); PLATELET COUNT 145 x10^3/uL (163-337); RDW 13.6 % (12.6-16.6)
[2024-12-30] MEDS: ALBUTEROL SO4 2.5/IPRATROPIUM 0.5 INH SOL 3 ML VIAL.NEB. NEB SCH (08:35)
[2024-12-30 09:10] LABS: POTASSIUM 3.9 mmol/L (3.5-5.1)
[2024-12-30] MEDS: ENOXAPARIN NA (PORCINE) 40 MG/0.4 ML DISP.SYRIN SQ SCH (09:25)
[2024-12-30] MEDS: amLODIPine BESYLATE 10 MG TABLET (FP) PO SCH (09:25)
[2024-12-30 09:41] LABS: ALBUMIN 3.2 g/dl (3.4-5.0); BLOOD UREA NITROGEN 19.9 mg/dL (7-18); CALCIUM 8.4 mg/dL (8.5-10.1)
[2024-12-30 09:42] LABS: MAGNESIUM 2.3 mg/dL (1.8-2.4)
[2024-12-30 09:45] LABS: CREATININE 1.1 mg/dL (0.55-1.3); PHOSPHOROUS 3.9 mg/dL (2.5-4.9)
[2024-12-30 09:46] LABS: BILIRUBIN,TOTAL 0.2 mg/dL (0.2-1); TOT PROT 6.3 g/dl (6.4-8.2)
[2024-12-30] MEDS ORDERED: PATIENT'S OWN MEDICATION (NON-FORMULARY) (Brimonidine Tartrate/Timolol [Combigan 0.2%-0.5% OD SCH (10:00)
[2024-12-30] MEDS ORDERED: busPIRone HCL 10 MG TABLET (FP) PO SCH (10:00)
[2024-12-30] MEDS ORDERED: ARTIFICIAL TEARS OPHTHALMIC DROPS OU PRN (14:30)
[2024-12-30] MEDS: PATIENT'S OWN MEDICATION (NON-FORMULARY) (Lifitegrast [Xiidra] 1 EACH Droperette) OU SCH (14:30)
[2024-12-30] MEDS: MELATONIN 5 MG TABLETS PO PRN (22:05)
[2024-12-30] MEDS: REMDESIVIR 100 MG in SODIUM CHLORIDE 250 ML IVPB SCH (22:05)
[2024-12-31] MEDS: ACETAMINOPHEN 500 MG TABLET (FP) PO ONE (00:02)
[2024-12-31 09:18] LABS: ABSOLUTE IMMATURE GRANULOCYTES 0.01 x10^3/uL (0.0-0.031); BASOPHILS # 0.01 x10^3/uL (0.01-0.08); HEMATOCRIT 42.1 % (40.1-51.0); HEMOGLOBIN 13.3 g/dL (13.7-17.5); MCHC 31.6 g/dl (32.3-36.5); MEAN PLT VOLUME 9.8 fl (9.4-12.4); MONOCYTE # 0.47 x10^3/uL (0.30-0.82); MONOCYTE % 6.7 % (5.3-12.2); PLATELET COUNT 160 x10^3/uL (163-337); RDW 13.3 % (12.6-16.6)
[2024-12-31 09:41] LABS: POTASSIUM 3.8 mmol/L (3.5-5.1)
[2024-12-31 09:49] LABS: ALBUMIN 3.1 g/dl (3.4-5.0); BLOOD UREA NITROGEN 27.7 mg/dL (7-18)
[2024-12-31 09:50] LABS: BILIRUBIN,TOTAL 0.2 mg/dL (0.2-1); TOT PROT 6.3 g/dl (6.4-8.2)
[2024-12-31 09:52] LABS: CALCIUM 8.4 mg/dL (8.5-10.1); MAGNESIUM 2.1 mg/dL (1.8-2.4)
[2024-12-31 11:00] VITALS: RESP 18
[2024-12-31] MEDS: FAMOTIDINE 20 MG TABLET PO ONE (13:24)
[2025-01-01] MEDS: ACETAMINOPHEN 1000 MG/100 ML BAG IVPB ONE (02:14)
[2025-01-01 08:11] LABS: ABSOLUTE IMMATURE GRANULOCYTES 0.04 x10^3/uL (0.0-0.031); EOSINOPHIL % 0.1 % (0.8-7.0); EOSINOPHILS # 0.01 x10^3/uL (0.04-0.54); HEMATOCRIT 44.3 % (40.1-51.0); MCHC 31.6 g/dl (32.3-36.5); MEAN CELL VOLUME 95.3 fl (79.0-92.2); MEAN PLT VOLUME 9.8 fl (9.4-12.4); MONOCYTE # 0.49 x10^3/uL (0.30-0.82); MONOCYTE % 6.5 % (5.3-12.2); PLATELET COUNT 179 x10^3/uL (163-337); RDW 13.5 % (12.6-16.6)
[2025-01-01 09:08] LABS: POTASSIUM 3.7 mmol/L (3.5-5.1)
[2025-01-01] MEDS: FAMOTIDINE 20 MG TABLET PO SCH (09:19)
[2025-01-01 09:20] LABS: CALCIUM 8.8 mg/dL (8.5-10.1)
[2025-01-01 09:21] LABS: ALBUMIN 3.4 g/dl (3.4-5.0); MAGNESIUM 2.2 mg/dL (1.8-2.4)
[2025-01-01 09:25] LABS: TOT PROT 6.6 g/dl (6.4-8.2)
[2025-01-01 09:26] LABS: BILIRUBIN,TOTAL 0.3 mg/dL (0.2-1)
[2025-01-01 15:15] VITALS: BP 112/73; PULSE 88; TEMP 97.3
== END 2025-01-01 15:51 | disposition home health service (06) | DRG 178 ==
LOC: JER 12:49 → JERBED 17:44 → J8W 20:35 → OBSVTOIN 12-30 09:46
PROVIDERS: ADMIT Internal Medicine; ATTEND Nurse Practitioner Acute Care
DX: U07.1 COVID-19 (principal); I50.32 Chronic diastolic (congestive) heart failure; I11.0 Hypertensive heart disease with heart failure; J44.9 Chronic obstructive pulmonary disease, unspecified; E78.5 Hyperlipidemia, unspecified; F12.90 Cannabis use, unspecified, uncomplicated; I73.9 Peripheral vascular disease, unspecified; G47.33 Obstructive sleep apnea (adult) (pediatric); E66.9 Obesity, unspecified; Z68.36 Body mass index [BMI] 36.0-36.9, adult; R29.6 Repeated falls; R09.89 Other specified symptoms and signs involving the circulatory and respiratory systems; Z89.612 Acquired absence of left leg above knee; K21.9 Gastro-esophageal reflux disease without esophagitis; K57.90 Diverticulosis of intestine, part unspecified, without perforation or abscess without bleeding; Z85.46 Personal history of malignant neoplasm of prostate; Z96.653 Presence of artificial knee joint, bilateral
CPT/HCPCS: 0241U-QW; 36415; 70450-TC; 71045-TC-FY; 72125-TC; 80053; 80307; 81003; 83735; 84100; 84484; 85025; 85379; 86140; 86803; 87086; 87389; 93005; 93010; 94640; 97116-GP; 97161-GP; 99285-25; G0378; J0131; J0248